=== PATIENT | female | born 1955 | race Caucasian/White ===

== ENCOUNTER 2024-04-10 14:06 | Outpatient (CLI) | payer OTHER, MEDICARE, SELFPAY | END 2024-04-10 14:07 | disposition home or self-care (01) | LOC: CHSLAB 14:17 | PROVIDERS: PCP Family Medicine; Visit Provider Specialist | DX: C43.71 Malignant melanoma of right lower limb, including hip (principal) | CPT/HCPCS: 88305; 88342 ==

== ENCOUNTER 2024-11-27 15:33 | Outpatient (CLI) | payer MEDICARE, SELFPAY ==
--- NOTE | 2024-11-27 | S_PTH ---
PATIENT: Estrella Suero LOC: [facility]#:[id number] AGE/SX: 69/F ROOM: RE11/27/[address]: Karan Reyes M.D. : 1955 BED: DIS: 11/27/2024 SPEC #: [id number] RECD: 11/27/24 17:43 STATUS: MARIUSZ REQ #: [id number] RAVEN: 11/27/24 00:[address]: Karan Reyes DEPT: [facility] Surgical RECD BY: Luz Koroma MLT, ([facility]) ENTERED: 11/27/24 17:43 SP TYPE: Surgical OTHR DR: Maxwell GonzalezMD Tissues: A - Skin Bx Procedures: Hematoxylin and Eosin Stain Gross and Microscopic Level 4 PRAME S 100
--- OUTSIDE RECORDS SUMMARY | 2024-11-27 15:44 | XMS_ITS | Encounter Summary ---
Author Organization [employer] Address [address] [place] [address] Care Team Providers Care Art Display Maker Name Role Phone Christiano Velasquez MD Primary Care Provider [phone] Encounter Details Date Type Department Care Team (Latest Contact Info) Description 04/14/2007 Outpatient Historical HIS [facility] [place] [address] [place] [address] Edema (Primary Dx) Social History Tobacco Use Types Packs/Day Years Used Date Smoking Tobacco: Never Assessed Comments Unknown Sex and Gender Information Value Date Recorded Sex Assigned at Not on file Legal Sex Female 4:47 AM COMMERCIAL ANNOUNCER Gender Identity Not on file Sexual Orientation Not on file documented as of this encounter Plan of Treatment Not on file documented as of this encounter Visit Diagnoses Diagnosis Edema- Primary documented in this encounter Care Teams Art Display Maker Relationship Specialty Start Date End Date Christiano Velasquez MD PCP - General 07/16/09 documented as of this encounter
--- OUTSIDE RECORDS SUMMARY | 2024-11-27 15:44 | XMS_ITS | Encounter Summary ---
Author Organization [facility] Address [address] [place] [address] Care Team Providers Care Ordnance Truck Installation Supervisor Name Role Phone Christiano Velasquez MD Primary Care Provider [phone] Encounter Details Date Type Department Care Team (Latest Contact Info) Description 07/24/2003 Outpatient Historical HIS [facility] [place] Charlene Ramírez MD PAIN IN LIMB (Primary Dx) Social History Tobacco Use Types Packs/Day Years Used Date Smoking Tobacco: Never Assessed Comments Unknown Sex and Gender Information Value Date Recorded Sex Assigned at Not on file Legal Sex Female 4:47 AM COUNCIL ON AGING DIRECTOR Gender Identity Not on file Sexual Orientation Not on file documented as of this encounter Plan of Treatment Not on file documented as of this encounter Visit Diagnoses Diagnosis Pain in limb- Primary documented in this encounter Care Teams Ordnance Truck Installation Supervisor Relationship Specialty Start Date End Date Christiano Velasquez MD PCP - General 07/16/09 documented as of this encounter
--- OUTSIDE RECORDS SUMMARY | 2024-11-27 15:44 | XMS_ITS | Encounter Summary ---
Author Organization [facility] Address [address] [place] [address] Care Team Providers Care Chuck Tender Name Role Phone Christiano Velasquez MD Primary Care Provider [phone] Encounter Details Date Type Department Care Team (Latest Contact Info) Description 09/28/2004 Outpatient Historical HIS [facility] [place] Leeroy Aguilar MD NO ADDRESS ON FILE HERPES ZOSTER NOS (Primary Dx) Social History Tobacco Use Types Packs/Day Years Used Date Smoking Tobacco: Never Assessed Comments Unknown Sex and Gender Information Value Date Recorded Sex Assigned at Not on file Legal Sex Female 4:47 AM SOCIAL DIRECTOR Gender Identity Not on file Sexual Orientation Not on file documented as of this encounter Plan of Treatment Not on file documented as of this encounter Visit Diagnoses Diagnosis Herpes zoster without mention of complication- Primary documented in this encounter Care Teams Chuck Tender Relationship Specialty Start Date End Date Christiano Velasquez MD PCP - General 07/16/09 documented as of this encounter
--- OUTSIDE RECORDS SUMMARY | 2024-11-27 15:44 | XMS_ITS | Referral Summary ---
Author Organization [facility] Address [address] [place] [address] Care Team Providers Care Press Supervisor Name Role Phone Christiano Velasquez MD Primary Care Provider [phone] Allergies Active Allergy Reactions Criticality Noted Date Comments Lidocaine Swelling Medium 08/17/2014 Morphine Unknown 12/10/2010 Many yrs ago/ pt does not recall Penicillamine Palpitations Low 05/14/2024 Penicillins Palpitations Low 05/07/2009 Sulfa (Sulfonamide Antibiotics) Hives Medium 05/07/2009 Medications lisinopriL (PRINIVIL,ZESTR DC) 10 mg tabletIndicatio ns:hypertension Take 1 tablet (10 mg total) by mouth every morning 4 Active metFORMIN XR (GLUCOPHAGE XR) 500 mg 24 hr tabletIndicatio ns:type 2 diabetes mellitus Take 1 tablet (500 mg total) by mouth 2 (two) times a day 4 Active rosuvastatin (CRESTOR) 40 mg tabletIndicatio ns:hyperlipidem ia Take 1 tablet (40 mg total) by mouth every morning 4 Active Rybelsus 7 mg tabletIndicatio ns:type 2 diabetes mellitus Take 1 tablet (7 mg total) by mouth daily before breakfast 4 Active escitalopram (LEXAPRO) 20 mg tabletIndicatio ns:Anxiety with Depression Take 1 tablet (20 mg total) by mouth every morning 4 Active acetaminophen (TYLENOL) 500 mg tablet Take 1 tablet (500 mg total) by mouth every 6 (six) hours as needed for pain 30 tablet 4 Active oxyCODONE (ROXICODONE) 5 mg immediate release tabletIndicatio ns:Pain Take 1 tablet (5 mg total) by mouth every 4 (four) hours as needed for pain 5 tablet 4 Active Additional Information Patient not taking.Informant: Self, Reported on 07/23/2024 Active Problems Problem Noted Date Diagnosed Date Wound, open, leg, right, initial encounter 06/27 Malignant melanoma 05/14/2024 Immunizations Immunization Administration Dates Next Due Influenza, Quadrivalent, Hig h Dose, Preservative Free, Intrr 03/30/2023 Influenza, Quadrivalent, Rec ombinant, Egg Free, Preservative Free, Intramuscular 04/20/2022 Influenza, Quadrivalent, Spl it, Preservative Free, Intramuscular 03/25/2020,04/15/2018,04/27/2017 Influenza, Trivalent, High D ose, Split, Preservative Free, Intramuscular 03/23/2024 Influenza, Trivalent, IM (MDV) 03/11/2021,2013 Influenza, Unspecified 05/16/2019 Palivizumab 03/30/2023 RSV Vaccine, Pref, Recombina nt, Subunit, Adjuvanted, PF, IM (Arexvy) 03/30/2023 Tdap 05/12/2015 ZOSTER Recombinant 05/08/2022 Social History Tobacco Use Types Packs/Day Years Used Date Smoking Tobacco: Never Passive Smoke Exposure: Past Smokeless Tobacco: Never Tobacco Cessation:Counseling Given: Not Answered Passive Exposure Comments:Dad smoked AUDIT-C Answer Date Recorded Q1: How often do you have a drink containing alcohol? Never 07/02/2024 Q2: How many drinks containi ng alcohol do you have on a typical day when you are drinking? Patient does not drink Q3: How often do you have si x or more drinks on one occasion? Never 07/02/2024 Personal Safety Answer Date Recorded Have you ever been in or are you currently in a harmful physical or emotional relationship or is someone making you feel afraid or unsafe? Denies 07/02/2024 Comments No Sex and Gender Information Value Date Recorded Sex Assigned at Not on file Legal Sex Female 4:10 PM SUBSTATION OPERATOR HELPER GENERATION Gender Identity Not on file Sexual Orientation Not on file Last Filed Vital Signs Vital Sign Reading Time Taken Comments Blood Pressure 109/73 07/23/2024 1:44 PM SUBSTATION OPERATOR HELPER GENERATION Pulse 91 07/23/2024 1:44 PM SUBSTATION OPERATOR HELPER GENERATION Temperature 36.7 C (98 F) 07/23/2024 1:44 PM SUBSTATION OPERATOR HELPER GENERATION Respiratory Rate 18 07/23/2024 1:44 PM SUBSTATION OPERATOR HELPER GENERATION Oxygen Saturation 98% 07/23/2024 1:44 PM SUBSTATION OPERATOR HELPER GENERATION Inhaled Oxygen Concentration - - Weight 78.3 kg (172 lb 9.6 oz) 07/23/2024 1:44 P M SUBSTATION OPERATOR HELPER GENERATION Height 162 cm (5' 3.78) 07/23/2024 1:44 PM SUBSTATION OPERATOR HELPER GENERATION Body Mass Index 29.83 07/23/2024 1:44 PM SUBSTATION OPERATOR HELPER GENERATION Plan of Treatment Not on file Medical Devices Implanted Type Area Receiving Clerk Device Identifier Shelf Expiration Date Model / Serial / Lot Left Shoulder Rotator Cuff Repair Left: Shoulder Insurance [facility] [employer] [facility] [employer] Advance Directives For more information, please contact: [phone] Documents on File Type Date Recorded Patient Levers Lace Machine Operator Expl anation Power of Metalsmith 06/26/2024 6:04 AM Care Teams Press Supervisor Relationship Specialty Start Date End Date Christiano Velasquez MD PCP - General 10/21/16
--- OUTSIDE RECORDS SUMMARY | 2024-11-27 15:44 | XMS_ITS | Encounter Summary ---
Author Organization [facility] Address [address] [place] [address] Care Team Providers Care Suede Brusher Name Role Phone Christiano Velasquez MD Primary Care Provider [phone] Encounter Details Date Type Department Care Team (Latest Contact Info) Description 12/14/2002 Outpatient Historical HIS [facility] Charlene Ramírez MD CONTUSION OF FINGER (Primary Dx) Social History Tobacco Use Types Packs/Day Years Used Date Smoking Tobacco: Never Assessed Comments Unknown Sex and Gender Information Value Date Recorded Sex Assigned at Not on file Legal Sex Female 4:47 AM MANAGER TRADE Gender Identity Not on file Sexual Orientation Not on file documented as of this encounter Plan of Treatment Not on file documented as of this encounter Visit Diagnoses Diagnosis Contusion of finger- Primary documented in this encounter Care Teams Suede Brusher Relationship Specialty Start Date End Date Christiano Velasquez MD PCP - General 07/16/09 documented as of this encounter
--- OUTSIDE RECORDS SUMMARY | 2024-11-27 15:44 | XMS_ITS | Clinical Summary ---
Author Organization [facility] Address [address] [place] [address] Care Team Providers Care Patient Information Coordinator Name Role Phone Christiano Velasquez MD Primary Care Provider [phone] Allergies Active Allergy Reactions Criticality Noted Date Comments Lidocaine Swelling Medium 08/17/2014 Morphine Unknown 12/10/2010 Many yrs ago/ pt does not recall Penicillamine Palpitations Low 05/14/2024 Penicillins Palpitations Low 05/07/2009 Sulfa (Sulfonamide Antibiotics) Hives Medium 05/07/2009 Medications lisinopriL (PRINIVIL,ZESTR CO) 10 mg tabletIndicatio ns:hypertension Take 1 tablet [...] (Arexvy) 03/30/2023 Tdap 05/12/2015 ZOSTER Recombinant 05/08/2022 Surgical History Surgery Date Site/Laterality Comments BIOPSY 07/11/2023 - 07/10/2024 Right on the right calf BACK SURGERY 07/11/2022 - 07/10/2023 3 pinched nerves ROTATOR CUFF REPAIR 07/11/2020 - 07/10/2021 Left left shoulder MELANOMA RESECTION 06/10/2024 - 07/10/2024 Medical History Medical History Date Comments Hypertension Depression Diabetes (HCC) Thyroid disease Overweight Sleep apnea Type 2 diabetes mellitus (HCC) Family History Medical History Relation Name Comments Lung cancer Father Anesthesia problems Neg Hx Malig Hypertension Neg Hx Malig Hyperthermia Neg Hx Pseudochol deficiency Neg Hx Relation Name Status Comments Father Mother Social History Tobacco Use Types Packs/Day Years [...] on file Legal Sex Female 4:10 PM LOCAL ANNOUNCER Gender Identity Not on file Sexual Orientation Not on file Obstetrics History Last Filed Vital Signs Vital Sign Reading Time Taken Comments Blood Pressure 109/73 07/23/2024 1:44 PM LOCAL ANNOUNCER Pulse 91 07/23/2024 1:44 PM LOCAL ANNOUNCER Temperature 36.7 C (98 F) 07/23/2024 1:44 PM LOCAL ANNOUNCER Respiratory Rate 18 07/23/2024 1:44 PM LOCAL ANNOUNCER Oxygen Saturation 98% 07/23/2024 1:44 PM LOCAL ANNOUNCER Inhaled Oxygen Concentration - - Weight 78.3 kg (172 lb 9.6 oz) 07/23/2024 1:44 P M LOCAL ANNOUNCER Height 162 cm (5' 3.78) 07/23/2024 1:44 PM LOCAL ANNOUNCER Body Mass Index 29.83 07/23/2024 1:44 PM LOCAL ANNOUNCER Plan of Treatment Health Maintenance Due Date Last Done Comments Breast Cancer Screening-Mammogram 1955 Colon Cancer Screening-Colonoscopy 1955 Depression Screening 1955 Hepatitis C Screening 1955 Osteoporosis Screening-Bone Density Scan 1955 Hepatitis B Screening 09/10/1975 Pneumococcal vaccine 65+ (1 of 1 - PCV) 09/10/2007 Zoster Vaccine (2 of 2) 07/03/2022 05/08/2022 Well Visit 65+ 2022 Covid-19 Vaccine (5 - 2023-2 5 season) 2024 03/23/2024, 04/04/2023, 04/20/2022, Additional history exists DTaP/Tdap/Td Vaccine (2 - Td or Tdap) 05/12/2025 05/12/2015 Fall Risk Assessment 07/02/2025 07/02/2024 Influenza Vaccine Completed 03/23/2024, , 04/20/2022, Additional history exists Medical Devices Implanted Type Area Research Program Intern Device Identifier Shelf Expiration Date Model / Serial / Lot Left Shoulder Rotator Cuff Repair Left: Shoulder Insurance [facility] [employer] [facility] [employer] Advance Directives For more information, please contact: [phone] Documents on File Type Date Recorded Patient Supportive Employment Case Manager Expl anation Power of Water Quality Assistant 06/26/2024 6:04 AM Care Teams Patient Information Coordinator Relationship Specialty Start Date End Date Christiano Velasquez MD PCP - General 4/13/17
--- OUTSIDE RECORDS SUMMARY | 2024-11-27 15:44 | XMS_ITS | Encounter Summary ---
Author Organization [facility] Address [address] [place] [address] Care Team Providers Care Spinning Room Worker Name Role Phone Christiano Velasquez MD Primary Care Provider [phone] Encounter Details Date Type Department Care Team (Latest Contact Info) Description 03/24/2007 Outpatient Historical HIS [facility] [place] [place] Leeroy Aguilar MD NO ADDRESS ON FILE Acute Sinusitis, Unspecified (Primary Dx) Social History Tobacco Use Types Packs/Day Years Used Date Smoking Tobacco: Never Assessed Comments Unknown Sex and Gender Information Value Date Recorded Sex Assigned at Not on file Legal Sex Female 4:47 AM INTERNATIONAL AFFAIRS VICE PRESIDENT Gender Identity Not on file Sexual Orientation Not on file documented as of this encounter Plan of Treatment Not on file documented as of this encounter Visit Diagnoses Diagnosis Acute sinusitis, unspecified- Primary documented in this encounter Care Teams Spinning Room Worker Relationship Specialty Start Date End Date Christiano Velasquez MD PCP - General 07/16/09 documented as of this encounter
--- OUTSIDE RECORDS SUMMARY | 2024-11-27 15:44 | XMS_ITS | Encounter Summary ---
Author Organization [employer] Address [address] [place] [address] Care Team Providers Care Online Tutor Name Role Phone Christiano Velasquez MD Primary Care Provider [phone] Encounter Details Date Type Department Care Team (Late st Contact Info) Description 08/10/2007 Outpatient Historical HIS [facility] Leeroy Neumann MD NO ADDRESS ON FILE Social History Tobacco Use Types Packs/Day Years Used Date Smoking Tobacco: Never Assessed Comments Unknown Sex and Gender Information Value Date Recorded Sex Assigned at Not on file Legal Sex Female 4:47 AM FISHERIES SPECIALIST Gender Identity Not on file Sexual Orientation Not on file documented as of this encounter Plan of Treatment Not on file documented as of this encounter Visit Diagnoses Not on filedocumented in this encounter Care Teams Online Tutor Relationship Specialty Start Date End Date Christiano Velasquez MD PCP - General 07/16/09 documented as of this encounter
--- OUTSIDE RECORDS SUMMARY | 2024-11-27 15:44 | XMS_ITS | Clinical Summary ---
Author Organization [employer] [facility] Address [address] [facility] [place] [address] Phone Care Team Providers Care Hand Upper And Bottom Lacer Name Role Phone Christiano Velasquze MD Primary Care Provider [phone] Allergies Active Allergy Reactions Criticality Noted Date Comments Amoxicillin Unknown 05/07/2009 Lidocaine Swelling Low 11/10/2014 Morphine Unknown 12/10/2010 Sulfa (Sulfonamide Antibiotics) Unknown 04/11 Medications multivitamin (DAILY-GEOVANNA) Oral tablet Take 1 Tab by mouth daily. Active Active Problems No known active problems Family History Relation Name Status Comments Father Mother Social History Tobacco Use Types Packs/Day Years Used Date Smoking Tobacco: Never Smokeless Tobacco: Never Alcohol Use Standard Drinks/Week Comments No 0 (1 standard drink = 0.6 oz pur e alcohol) Comments No Sex and Gender Information Value Date Recorded Sex Assigned at Not on file Legal Sex Female 4:47 AM PAVING MACHINE OPERATOR Gender Identity Not on file Sexual Orientation Not on file Occupation Industry Job Start Date Job End Date Not on file Not on file Not on file Not on file Last Filed Vital Signs Vital Sign Reading Time Taken Comments Blood Pressure 140/90 03/18/2016 9:13 AM CDT Pulse 88 03/18/2016 9:13 AM CDT Temperature 36.4 C (97.5 F) 03/18/2016 9:13 AM CDT Respiratory Rate 16 03/18/2016 9:13 AM CDT Oxygen Saturation 98% 03/18/2016 9:13 AM CDT Inhaled Oxygen Concentration - - Weight 71.7 kg (158 lb) 03/18/2016 9:13 AM CDT Height 160 cm (5' 3) 03/18/2016 9:13 AM CDT Body Mass Index 27.99 03/18/2016 9:13 AM CDT Plan of Treatment Health Maintenance Due Date Last Done Comments DTAP/TDAP/TD VACCINES (1 - Tdap) 1976 BREAST CANCER SCREENING 1997 COLORECTAL SCREENING 2002 Colorectal Cancer Screening 2002 FIT-DNA Q 3 years 2002 FIT/FOBT Q 1 year 2002 Flex Sig/CT Colonography Q 5 years 2002 PNEUMOCOCCAL VACCINE 50+ YEARS (1 of 1 - PCV) 09/10/19 08 ZOSTER VACCINE (1 of 2) 09/10/2007 OSTEOPOROSIS SCREENING 2022 INFLUENZA VACCINE (#1) 2024 RSV VACCINE (60+ or ) (1 - 1-dose 75+ series) 2032 Insurance Care Teams Hand Upper And Bottom Lacer Relationship Specialty Start Date End Date Christiano Velasquez MD PCP - General 07/16/09
--- OUTSIDE RECORDS SUMMARY | 2024-11-27 15:44 | XMS_ITS | Clinical Summary ---
Author Organization [facility] Address [address] [place] [address] Care Team Providers Care Armor Reconnaissance Specialist Name Role Phone Christiano Velasquez MD Primary Care Provider [phone] Carmina Haynes RN Unavailable Source Comments [facility],non-owned Affiliates and Associated Physician Practices is amultiple site organization consisting of ambulatory clinics and hospital sitesin [place], [place], [place] and [place]. This disclosure is being madepursuant to the Care Everywhere program and may not contain all information available regarding this patient. Last updated 18.[facility] Allergies Active Allergy Reactions Criticality Noted Date Comments Amoxicillin 04/09/2013 Lidocaine 08/17/2014 Morphine 04/09/2013 Penicillins 08/17/2014 Sulfa Drugs 04/09/2013 Medications * Be aware that medications may not be up to date on this document. Alwaysverify current medications with the patient. acetaminophen (TYLENOL) 325 MG tablet Take 2 Tabs by mouth every 4 hours as needed. Maximum allowable Acetaminophen amount = 4 Grams (4000 mg) / 24 hours. 5 Active diazepam (VALIUM) 2 MG tablet Take 1 Tab by mouth 3 times daily as needed (vertigo). 30 Tab 0 5 Active meclizine (ANTIVERT) 25 MG tablet Take 1 Tab by mouth every 8 hours as needed for Dizziness. 30 Tab 0 5 Active fluticasone propionate (FLONASE) 50 MCG/ACT nasal spray Patterson 2 Sprays into each nostril once daily. 1 Bottle 0 5 Active pseudoephedrin e (SUDAFED) 60 MG tablet Take 1 Tab by mouth every 6 hours as needed for Nasal Congestion. 30 Tab 0 5 Active levofloxacin (LEVAQUIN) 750 MG tablet Take 1 Tab by mouth once daily. 10 Tab 0 5 Active Social History Tobacco Use Types Packs/Day Years Used Date Smoking Tobacco: Never Alcohol Use Standard Drinks/Week Comments No 0 (1 standard drink = 0.6 oz pur e alcohol) Comments Unknown Sex and Gender Information Value Date Recorded Sex Assigned at Not on file Legal Sex Female 4:11 AM AREA FIELD MANAGER Gender Identity Not on file Sexual Orientation Not on file Last Filed Vital Signs Vital Sign Reading Time Taken Comments Blood Pressure 142/88 08/19/2014 7:30 AM AREA FIELD MANAGER Pulse 105 08/19/2014 7:30 AM AREA FIELD MANAGER Temperature 36.4 C (97.6 F) 08/19/2014 7:30 AM AREA FIELD MANAGER Respiratory Rate 16 08/19/2014 7:30 AM AREA FIELD MANAGER Oxygen Saturation 96% 08/19/2014 7:30 AM AREA FIELD MANAGER Inhaled Oxygen Concentration - - Weight 81.6 kg (180 lb) 08/17/2014 8:00 AM AREA FIELD MANAGER Height 160 cm (5' 2.99) 08/17/2014 8:00 AM AREA FIELD MANAGER Body Mass Index 31.89 08/17/2014 8:00 AM AREA FIELD MANAGER Plan of Treatment Health Maintenance Due Date Last Done Comments BONE DENSITY TESTING 1957 COLOGUARD (AGES 45-75) - COL ON CA SCREENING 1957 COLON MONITORING 1957 COLONOSCOPY - COLON CA SCREENING 1957 CT COLONOGRAPHY - COLON CA SCREENING 1957 Colorectal Cancer Screening 1957 FIT - COLON CA SCREENING 1957 FLEX SIG - COLON CA SCREENING 1957 LIPID TESTING 1957 MAMMOGRAM 1957 HEPATITIS C SCREENING 09/05/1975 DTAP/TDAP/TD VACCINES (1 - Tdap) 1976 PNEUMOCOCCAL VACCINE 50+ (1 of 1 - PCV) 09/10/2007 ZOSTER VACCINE (1 of 2) 09/10/2007 COVID-19 VACCINE ( - 2023-2 5 season) 2024 DEPRESSION SCREENING 07/11/2024 INFLUENZA VACCINE (Season Ended) 2025 Respiratory Syncytial Virus (RSV) Vaccine Pt: or over 60 yrs (1 - 1-dose 75+ series) 2032 HEPATITIS B VACCINE Aged Out No longe r eligible based on patient's age to complete this topic HIB VACCINE Aged Out No longer eligi ble based on patient's age to complete this topic HPV VACCINE Aged Out No longer eligi ble based on patient's age to complete this topic MENINGOCOCCAL (Group B) VACC INE SHARED DECISION-MAKING Aged Out No longer eligibl e based on patient's age to complete this topic MENINGOCOCCAL GROUPS A/C/Y/W VACCINE Aged Out No longer eligible b ased on patient's age to complete this topic Insurance [facility] CIGNA Advance Directives * Full Code (Latest Code Status on File) Date Activated Date Inactivated Comments 08/17/2014 2:20 PM 08/19/2014 1:27 PM Care Teams Armor Reconnaissance Specialist Relationship Specialty Start Date End Date Christiano Velasquez MD PCP - General 07/07/11 Carmina Haynes RN Balloon Pilot 08/19/14
--- OUTSIDE RECORDS SUMMARY | 2024-11-27 15:44 | XMS_ITS | Encounter Summary ---
Author Organization [employer] [facility] Address [address] [place] [address] Care Team Providers Care Outsole Splicer Name Role Phone Christiano Velasquez MD Primary Care Provider [phone] Encounter Details Date Type Department Care Team (Latest Contact Info) Description 07/30/2002 Outpatient Historical [place] [facility] [place] [address] [place] [address] NONSPECIF SKIN ERUPT NEC (Primary Dx) Social History Tobacco Use Types Packs/Day Years Used Date Smoking Tobacco: Never Assessed Comments Unknown Sex and Gender Information Value Date Recorded Sex Assigned at Not on file Legal Sex Female 4:47 AM DIRECTOR OF INDUSTRIAL RELATIONS Gender Identity Not on file Sexual Orientation Not on file documented as of this encounter Plan of Treatment Not on file documented as of this encounter Visit Diagnoses Diagnosis Rash and other nonspecific skin eruption- Primary documented in this encounter Care Teams Outsole Splicer Relationship Specialty Start Date End Date Christiano Velasquez MD PCP - General 07/16/09 documented as of this encounter
--- OUTSIDE RECORDS SUMMARY | 2024-11-27 15:44 | XMS_ITS | Encounter Summary ---
Author Organization [facility] Address [address] [place] [address] Care Team Providers Care Tinner Automatic Name Role Phone Christiano Velasquez MD Primary Care Provider [phone] Encounter Details Date Type Department Care Team (Latest Contact Info) Description 04/10/2006 Outpatient Historical [facility] [place] Leeroy Aguilar MD NO ADDRESS ON FILE Acute Sinusitis, Unspecified (Primary Dx) Social History Tobacco Use Types Packs/Day Years Used Date Smoking Tobacco: Never Assessed Comments Unknown Sex and Gender Information Value Date Recorded Sex Assigned at Not on file Legal Sex Female 4:47 AM [employer] Gender Identity Not on file Sexual Orientation Not on file documented as of this encounter Plan of Treatment Not on file documented as of this encounter Visit Diagnoses Diagnosis Acute sinusitis, unspecified- Primary documented in this encounter Care Teams Tinner Automatic Relationship Specialty Start Date End Date Christiano Velasquez MD PCP - General 07/16/09 documented as of this encounter
== END 2024-11-27 15:34 | disposition home or self-care (01) ==
LOC: CHSLAB 15:41
PROVIDERS: PCP Family Medicine; Visit Provider Specialist
DX: L98.9 Disorder of the skin and subcutaneous tissue, unspecified (principal)
CPT/HCPCS: 88305; 88342